=== PATIENT | female | born 1945 | race Hispanic/Latino ===

== ENCOUNTER → 2018-12-04 | Outpatient (CLI) | payer OTHER | END | disposition home or self-care (01) | LOC: OIH 13:21 | PROVIDERS: ATTEND Family Medicine | DX: S20.219A Contusion of unspecified front wall of thorax, initial encounter (principal); R07.81 Pleurodynia; W18.2XXA Fall in (into) shower or empty bathtub, initial encounter; Y93.89 Activity, other specified; Y92.89 Other specified places as the place of occurrence of the external cause; Y99.8 Other external cause status | CPT/HCPCS: 71100 ==

== ENCOUNTER 2023-01-22 21:45 | Emergency (ER) | payer MEDICARE ==
[~2023-01-22] VITALS: Ht 154.9 cm; Wt 81.6 kg
[~2023-01-22 21:45] MED LIST: ALPR0.255 PO; CETI10TA57 PO; ESCI-8 PO; FLUT16H NASAL; LEVO112C4 PO; LEVO5TAB13 PO; LOSA50TA64 PO; METO-409 PO; MONT-39 PO; OMEP40CA21 PO; SIMV-43 PO
[2023-01-22 21:48] VITALS: BP 194/73; PULSE 66; RESP 18; O2SAT 96
[2023-01-23] MEDS ORDERED: DIPH50 PO (00:52)
[2023-01-23] MEDS ORDERED: TOP2515C TP (00:52)
== END 2023-01-23 01:08 | disposition home or self-care (01) ==
LOC: EDH 21:45
DX: L20.9 Atopic dermatitis, unspecified (principal); E11.9 Type 2 diabetes mellitus without complications; I10 Essential (primary) hypertension; Z90.49 Acquired absence of other specified parts of digestive tract

== ENCOUNTER → 2023-12-11 | Outpatient (CLI) | payer MEDICARE ==
[~2023-12-11] MED LIST changes: +DIPH50 PO; +TOP2515C TP
== END | disposition home or self-care (01) ==
LOC: RAH 10:36
PROVIDERS: ATTEND Internal Medicine
DX: S46.001A Unspecified injury of muscle(s) and tendon(s) of the rotator cuff of right shoulder, initial encounter (principal); M19.011 Primary osteoarthritis, right shoulder; M25.711 Osteophyte, right shoulder; X58.XXXA Exposure to other specified factors, initial encounter; Y93.89 Activity, other specified; Y92.89 Other specified places as the place of occurrence of the external cause; Y99.8 Other external cause status
CPT/HCPCS: 73221

== ENCOUNTER → 2024-02-20 | Outpatient (CLI) | payer MEDICARE ==
--- NOTE | 2024-02-21 09:19 | HMCIMG ---
Exam Type: SACRUM/COCCYX 2+VWS Clinical Information: COCCYDYNIA Comparison: None Findings: Oblique fracture near the sacrococcygeal junction without significant displacement. No other abnormalities. IMPRESSION: Sacrococcygeal fracture.
--- NOTE | 2024-02-21 09:23 | HMCIMG ---
Lumbar spine 3 views: AP, lateral, coned-down lateral view of the L5-S1 Clinical Information: LUMBAR RADICULOPATHY Comparison: None Findings and impression: Spondylitic and degenerative changes. No fractures. Degeneration facet joints with resultant grade 1 anterolisthesis L4 over 5 and L5 over S1. Again, sacrococcygeal fracture, as described in sacrum and coccyx x-ray report.
== END | disposition home or self-care (01) ==
LOC: RAH 16:34
PROVIDERS: ATTEND Internal Medicine
DX: M48.58XA Collapsed vertebra, not elsewhere classified, sacral and sacrococcygeal region, initial encounter for fracture (principal); M47.27 Other spondylosis with radiculopathy, lumbosacral region; M43.16 Spondylolisthesis, lumbar region; M51.379 Other intervertebral disc degeneration, lumbosacral region without mention of lumbar back pain or lower extremity pain
CPT/HCPCS: 72100; 72220